=== PATIENT | male | born 1975 | race Hispanic/Latino ===

== ENCOUNTER 2019-12-02 10:59 | Outpatient (CLI) | payer OTHER ==
--- NOTE | 2019-12-02 13:12 | RAD ---
CHEST 2 VIEWS: Date: 12/02/2019 HISTORY: Fever, wheezing. Prior history of pneumonia. FINDINGS: Heart size is normal. The lungs are clear. Right-sided old granulomatous disease. IMPRESSION: Old granulomatous disease. No acute intrathoracic disease. No evidence for pneumonia. POS: [facility]
== END 2019-12-02 11:00 | disposition home or self-care (01) ==
LOC: SCSRAD 10:59
PROVIDERS: ATTEND Nurse Practitioner Family
DX: R50.9 Fever, unspecified (principal); D71 Functional disorders of polymorphonuclear neutrophils
CPT/HCPCS: 71046